=== PATIENT | female | born 1990 | race Hispanic/Latino ===

== ENCOUNTER 2023-06-28 17:34 | Emergency (ER) | payer SELFPAY ==
[2023-06-28] MEDS ORDERED: Acetaminophen 500 MG TAB ONE (18:17)
[2023-06-28] MEDS ORDERED: Ibuprofen 200 MG TAB ONE (18:17)
== END 2023-06-28 18:41 | disposition home or self-care (01) ==
LOC: CSHERS 17:34
DX: U07.1 COVID-19 (principal); F17.290 Nicotine dependence, other tobacco product, uncomplicated
CPT/HCPCS: 71045; 93005